=== PATIENT | female | born 1960 | race Caucasian/White ===

== ENCOUNTER 2020-09-16 12:45 | Emergency (ER) | payer OTHER ==
[~2020-09-16] VITALS: Ht 160 cm; Wt 87.5 kg
[2020-09-16] MEDS ORDERED: DILT240C82 PO (13:00)
[2020-09-16] MEDS ORDERED: B-122500 PO (13:00)
[2020-09-16] MEDS ORDERED: WELLTAB38 PO (13:00)
[2020-09-16] MEDS ORDERED: SING10TA32 PO (13:00)
[2020-09-16] MEDS ORDERED: LEVO88TA3 PO (13:00)
[2020-09-16] MEDS ORDERED: NS 1,000 ML IV ONE (13:36)
[2020-09-16 14:30] LABS: BASO # 0.1 10^3/uL (0.0-0.2); BASO % 0.5 % (0.0-1.0); EOS # 0.3 10^3/uL (0.0-0.5); EOS % 2.3 % (0.0-3.0); HEMATOCRIT 39.1 % (36.0-47.0); HEMOGLOBIN 12.7 g/dl (12.0-15.5); LYMPH # 2.9 10^3/uL (1.5-5.0); LYMPH % 25.8 % (24.0-44.0); MEAN CORPUSCULAR HEMOGLOBIN 30.2 pg (27.0-33.0); MEAN CORPUSCULAR HGB CONC 32.5 g/dl (32.0-36.5); MEAN CORPUSCULAR VOLUME 93.1 fl (80.0-96.0); MONO # 1.2 10^3/uL (0.0-0.8); MONO % 11.1 % (2.0-8.0); NEUTROPHILS # 6.7 10^3/uL (1.5-8.5); NEUTROPHILS % 59.8 % (36.0-66.0); PLATELET COUNT, AUTOMATED 362 10^3/uL (150-450); WHITE BLOOD COUNT 11.2 10^3/uL (4.0-10.0)
[2020-09-16 14:41] LABS: PROTHROMBIN TIME 13.4 SECONDS (12.5-14.3)
[2020-09-16 14:42] LABS: PARTIAL THROMBOPLASTIN TIME 34.3 SECONDS (24.2-38.5)
--- NOTE | 2020-09-16 14:47 | REP ---
INDICATION: cough chest pain COMPARISON: None. TECHNIQUE: PA and lateral. FINDINGS: The mediastinum and cardiac silhouette are normal. The lung espinoza are clear and without acute consolidation, effusion, or pneumothorax. The skeletal structures are intact and normal. IMPRESSION: No acute cardiopulmonary process. <Electronically signed by Sal Reyes > 09/16/20 [id number]
[2020-09-16 15:04] LABS: ALBUMIN 3.9 GM/DL (3.2-5.2); ALT/SGPT 29 U/L (12-78); BILIRUBIN,TOTAL 0.3 MG/DL (0.2-1.0); BLOOD UREA NITROGEN 20 MG/DL (7-18); CALCIUM LEVEL 9.1 MG/DL (8.5-10.1); CARBON DIOXIDE LEVEL 27 MEQ/L (21-32); CHLORIDE LEVEL 108 MEQ/L (98-107); CK-MB VALUE MASS < 1.0 NG/ML (<3.6); CPK CREATINE PHOSPHOKINASE 57 U/L (26-192); CREATININE FOR GFR 0.82 MG/DL (0.55-1.30); FERRITIN 87 NG/ML (8-252); GLOMERULAR FILTRATION RATE > 60.0 (>51); GLUCOSE, FASTING 82 MG/DL (70-100); LDH LACTATE DEHYDROGENASE 169 U/L (84-246); MAGNESIUM LEVEL 2.4 MG/DL (1.8-2.4); MB/CK RELATIVE INDEX 1.75 (< OR =4); POTASSIUM SERUM 4.4 MEQ/L (3.5-5.1); SODIUM LEVEL 141 MEQ/L (136-145); TOTAL PROTEIN 6.8 GM/DL (6.4-8.2); TROPONIN I < 0.02 NG/ML (< 0.10)
[2020-09-16 16:52] VITALS: BP 149/62
--- NOTE | 2020-09-17 08:06 | ECGEPIP ---
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
== END 2020-09-16 17:13 | disposition home or self-care (01) ==
LOC: M ED 12:45
DX: R06.02 Shortness of breath (principal); M94.0 Chondrocostal junction syndrome [Tietze]; U07.1 COVID-19; I48.91 Unspecified atrial fibrillation; E03.9 Hypothyroidism, unspecified; Z98.84 Bariatric surgery status; Z79.899 Other long term (current) drug therapy; Z79.890 Hormone replacement therapy; Z88.0 Allergy status to penicillin; Z91.030 Bee allergy status

== ENCOUNTER → 2020-11-03 | Outpatient (REF) | payer OTHER ==
[~2020-11-03] MED LIST: B-122500 PO; DILT240C82 PO; LEVO88TA3 PO; SING10TA32 PO; WELLTAB38 PO
[2020-11-03 18:36] LABS: BLOOD UREA NITROGEN 19 MG/DL (7-18); CALCIUM LEVEL 9.1 MG/DL (8.5-10.1); CARBON DIOXIDE LEVEL 24 MEQ/L (21-32); CHLORIDE LEVEL 106 MEQ/L (98-107); CREATININE FOR GFR 0.75 MG/DL (0.55-1.30); GLOMERULAR FILTRATION RATE > 60.0 (>51); GLUCOSE, FASTING 74 MG/DL (70-100); POTASSIUM SERUM 4.8 MEQ/L (3.5-5.1); SODIUM LEVEL 139 MEQ/L (136-145)
== END ==
LOC: M LAB REF 17:08
PROVIDERS: ATTEND Nurse Practitioner Family
DX: Z79.899 Other long term (current) drug therapy (principal); Z86.16 Personal history of COVID-19

== ENCOUNTER → 2020-12-02 | Outpatient (CLI) | payer OTHER ==
[~2020-12-02] MED LIST changes: +METHACHOLINE KIT (J7674) INH ONE
--- NOTE | 2020-12-02 12:04 | PFTRPT ---
Site: [facility], [address], [place], [address] ID: [id number] Name: CHIQUITA ENRIQUEZ Visit Date: 12/02/2020 Second ID: [id number] Referring Doctor: GERRY MILLS Reviewing Doctor: Mahendra Christianson MD [employer]: Chaya OLIVER RRT Age: 60 : 1960 Sex: Female Race: Height: 63.00 Inches Weight: 195.00 Lbs BSA: 1.91 Order IDs: [id number] Requested Test(s): <RESP-PFT.METH CHAL> Diagnosis: R05 Post Test Comments: Pt.'s effort appeared to be inconsistent. Xopenex nebulizer given for post bronchodilator. Review Status: Not Reviewed Pre-Bronch Post-Bronch Pred Actual %Pred Actual %Chng SPIROMETRY FVC (L) 3.21 3.87 120 3.68 -5 FEV1 (L) 2.49 3.14 126 3.10 -1 FEV1/FVC (%) 78 81 103 84 3 FEF 25% (L/sec) 4.90 6.52 133 5.56 -14 FEF 50% (L/sec) 3.66 4.57 124 3.73 -18 FEF 75% (L/sec) 1.24 1.16 93 1.24 6 FEF 25-75% (L/sec) 2.34 3.16 134 3.03 -4 FEF Max (L/sec) 6.20 6.65 107 5.57 -16 FIVC (L) 3.20 2.92 -8 FIF 50% (L/sec) 3.65 3.46 94 5.01 44 FIF Max (L/sec) 3.46 5.15 49 Expiratory Time (sec) 4.67 4.06 -12 Back Extrap Vol (L) 0.10 0.08 -19 Time To FEFmax (sec) 0.102 0.168 64
== END ==
LOC: M CARPUL 10:52
PROVIDERS: ATTEND Nurse Practitioner Family
DX: R05 Cough (principal)
CPT/HCPCS: 94070; J7674